=== PATIENT | male | born 1985 | race Caucasian/White ===

== ENCOUNTER 2017-09-02 18:32 | Emergency (ER) | payer BC ==
[~2017-09-02] VITALS: Ht 190.5 cm; Wt 94.3 kg
[2017-09-02] MEDS ORDERED: SODIUM CHLORIDE FLUSH 10ML SYR IVF ONE (19:00)
[2017-09-02] MEDS ORDERED: ONDANSETRON 2MG/ML, 2ML IVPush ONE (19:00)
[2017-09-02] MEDS ORDERED: MORPHINE SULFATE 4 MG/ML, 1ML IVPush PRN (19:00)
[2017-09-02] MEDS ORDERED: FAMOTIDINE 20 MG/2 ML IVP ONE (19:00)
[2017-09-02] MEDS ORDERED: SODIUM CHLORIDE 0.9% 1,000ML IVBOLUS ONE (19:00)
[2017-09-02] MEDS ORDERED: ONDANSETRON 2MG/ML, 2ML ONE (19:18)
[2017-09-02] MEDS ORDERED: FAMOTIDINE 20 MG/2 ML ONE (19:18)
[2017-09-02 19:23] LABS: HEMATOCRIT 50.1 % (39.2-51.8); HEMOGLOBIN 16.9 g/dL (13.7-18.0); WHITE BLOOD COUNT 10.4 x10^3/uL (3.4-10)
[2017-09-02 19:29] LABS: ASPARTATE AMINO TRANSFERASE 75 U/L (15-37); BLOOD UREA NITROGEN 19 mg/dL (7-18)
[2017-09-02] MEDS ORDERED: METOCLOPRAMIDE 5 MG/ML, 2ML IVPush ONE (19:30)
[2017-09-02] MEDS ORDERED: morphine SULFATE 10 MG/ML, 1ML IVPush ONE (19:30)
[2017-09-02] MEDS ORDERED: DIPHENHYDRAMINE 50 MG/ML, 1ML IVPush ONE (19:30)
[2017-09-02] MEDS ORDERED: morphine SULFATE 10 MG/ML, 1ML ONE (19:59)
[2017-09-02] MEDS ORDERED: DIPHENHYDRAMINE 50 MG/ML, 1ML ONE (19:59)
[2017-09-02] MEDS ORDERED: METOCLOPRAMIDE 5 MG/ML, 2ML ONE (19:59)
[2017-09-02 20:16] VITALS: BP 128/89
== END 2017-09-02 21:09 | disposition home or self-care (01) ==
LOC: ED 19:44
DX: K29.00 Acute gastritis without bleeding (principal); R11.2 Nausea with vomiting, unspecified
CPT/HCPCS: 36415; 76700; 80053; 83690; 85025; 86677; 96374; 96375; 99285; J1200; J2270; J2405; J2765; J7030; S0028

== ENCOUNTER 2018-03-16 12:32 | Emergency (ER) | payer BC ==
[~2018-03-16] VITALS: Ht 188 cm; Wt 91.4 kg
[2018-03-16] MEDS ORDERED: MORPHINE SULFATE 4 MG/ML, 1ML ONE (12:58)
[2018-03-16] MEDS ORDERED: ONDANSETRON ODT 4 MG ONE ×2 (12:58→13:08)
[2018-03-16] MEDS ORDERED: ONDANSETRON ODT 4 MG PO ONE (13:00)
[2018-03-16] MEDS ORDERED: SODIUM CHLORIDE FLUSH 10ML SYR IVF ONE (13:00)
[2018-03-16] MEDS ORDERED: MORPHINE SULFATE 4 MG/ML, 1ML IVPush PRN (13:00)
[2018-03-16 13:08] LABS: BASOPHILS # (AUTO) 0.05 x10^3/uL (0-0.1); BASOPHILS % (AUTO) 0 % (0-1); EOSINOPHILS % (AUTO) 1 % (1-7); LYMPHOCYTES # (AUTO) 2.27 x10^3/uL (1-3.4); LYMPHOCYTES % (AUTO) 22 % (22-44); MD NO; MEAN CORPUSCULAR HEMOGLOBIN 30.8 pg (27.5-34.5); MEAN CORPUSCULAR HGB CONC 33.8 g/dL (33.2-36.2); MEAN CORPUSCULAR VOLUME 90.9 fL (81-97); MEAN PLATELET VOLUME 8.8 fL (7.4-10.4); MONOCYTES % (AUTO) 7 % (2-9); NEUTROPHILS # (AUTO) 7.35 x10^3/uL (1.8-6.8); NEUTROPHILS % (AUTO) 70 % (42-75); PLATELET COUNT 281 x10^3/uL (130-400); RED BLOOD COUNT 5.51 x10^6/uL (4.38-5.82); RED CELL DISTRIBUTION WIDTH 13.3 % (9.4-14.8)
[2018-03-16] MEDS ORDERED: HYDROmorphone 2 MG/ML, 1ML ONE (13:16)
[2018-03-16] MEDS ORDERED: METOCLOPRAMIDE 5 MG/ML, 2ML ONE (13:17)
[2018-03-16 13:19] LABS: ALBUMIN 4.4 g/dL (3.4-5.0); ANION GAP 8 mmol/L (5-15); CALCIUM 9.5 mg/dL (8.5-10.1); CHLORIDE 109 mmol/L (98-107); CREATININE 1.19 mg/dL (0.7-1.3)
[2018-03-16] MEDS ORDERED: HYDROmorphone 1 MG/ML, 1ML IVPush PRN (13:30)
[2018-03-16] MEDS ORDERED: METOCLOPRAMIDE 5 MG/ML, 2ML IVPush ONE (13:30)
[2018-03-16] MEDS ORDERED: KETOROLAC 30 MG/1 ML IVPush ONE (15:00)
[2018-03-16] MEDS ORDERED: KETOROLAC 30 MG/1 ML ONE (15:03)
[2018-03-16 15:08] VITALS: BP 118/76
[2018-03-16 15:08] LABS: CULTURE INDICATED? YES; MICROSCOPIC INDICATED
== END 2018-03-16 16:41 | disposition home or self-care (01) ==
LOC: ED 13:54
DX: N13.2 Hydronephrosis with renal and ureteral calculous obstruction (principal); R31.9 Hematuria, unspecified
CPT/HCPCS: 36415; 74176; 80048; 81001; 82040; 85025; 87086; 96374; 96375; 99285; J1170; J1885; J2765; Q0162